=== PATIENT | male | born 1950 | race Caucasian/White ===

== ENCOUNTER 2021-06-03 20:08 | Emergency (ER) | payer MEDICARE, BC ==
[~2021-06-03] VITALS: Ht 175.3 cm; Wt 107.7 kg
--- NOTE | 2021-06-03 20:56 | RAD ---
PQRS Compliance Statement: One or more of the following individualized dose reduction techniques were utilized for this examinat ion: 1. Automated exposure control 2. Adjustment of the mA and/or kV according to patient size 3. Use of iterative reconstruction technique CT head without contrast 06/03/2021 8:40 PM INDICATION: Fall, hit head. Headache COMPARISON: None available TECHNIQUE: Multiple axial CT images of the head were obtained from skull base through the vertex with out intravenous contrast. FINDINGS: Head: Ventricles, sulci and basal cisterns are prominent compatible with mild generalized cerebral volume l oss. Low-attenuation in the periventricular white matter is suggestive of chronic small vessel ischem ic changes. There is no hydrocephalus. Valerio-white matter differentiation is normal. There is no acute intracranial hemorrhage. There is no mass, mass effect or midline shift. Mild cerebellar volume loss . Less, posterior fossa is normal in appearance. Visualized portions of the orbits are normal. Paranasal sinuses are well aerated. Mastoid air cells a re well aerated. Scalp and calvaria are normal. IMPRESSION: No acute intracranial hemorrhage. Mild generalized cerebral and cerebellar volume loss. Low-attenuation in the periventricular white ma tter is suggestive of chronic small vessel ischemic changes. Electronically signed by: Manda Gaona MD (06/03/2021 8:54 PM) [facility]
--- NOTE | 2021-06-03 21:07 | PHYS DOC ---
Past History Additional Past Medical Histor: Neuropathy, COPD, atrial fibrillation, CHF, stroke, coronary disease Past Surgical History: Cancer Surgery, Other Additional Past Surgical Histo: cardiac stents, thyroid surgery Alcohol Use: None General Adult EDM: Chief Complaint: Fall, complaining of left elbow, hip pain HPI: HPI: 71-year-old male has a history of COPD, CHF, atrial fibrillation on Coumadin who also has history of chronic gait imbalance, multiple falls and neuropathy. His says that he went out to smoke a cigarette, unfortunate the patient is an active smoker, she said that he had apparently lost his footing and fell backwards, complaining of pain in the left elbow/forearm, hip/back region in the back of his head, no reported loss of consciousness, she said he was in his usual state of health prior to this, no reported recent illness, fever, chills. The patient is unvaccinated to COVID-19. No reported slurred speech or facial droop, patient denies any focal numbness weakness/feeling face, arms or legs. Denies any loss of bowel or bladder control. Review of Systems: Review of Systems: General: no fevers , no chills, no general weakness Eyes: no blurred vision, no diplopia Skin: no rashes Neck: no swelling, no neck stiffness, no neck pain Heme: no bleeding, no lymph node enlargement Ear/Nose/Throat: No sore throat, no runny nose, no hearing loss, no difficulty swallowing Cardiovascular: no Chest pain, no palpitations Respiratory: No dyspnea, no cough, no hemoptysis Gastrointestinal: No abdominal pain, no nausea, no vomiting, no diarrhea, no blood in stool Genitourinary: no dysuria, no hematuria Musculoskeletal: no back pain, no leg pain, no arm pain, no arthralgia positive for left elbow pain, left hip pain headaches, no dizziness, no focal numbness/tingling, no focal weakness Psych: no depression, no anxiety, no SI/HI *All review of systems are negative other than what is noted above Allergies: Allergies: Allergies Coded Allergies Type Severity Reaction Last Updated Verified No Known Drug Allergies 06/03/21 No Physical Exam: PE: Gen-well appearing, no acute distress Head: Normocephalic/Atraumatic ENT: atraumatic, PERRLA, EOMI, oropharynx clear Neck: supple, full ROM/strength, no JVD, no nuchal rigidity, there is no midline cervical spinal tenderness Lungs: no distress, speaks in full sentences, scant end expiratory wheezing CV: irregularly irregular rate and rhythm, no murmus/rubs/gallops, peripheral pulses equal in all extremities Abdomen: soft/nontender, no guarding/rebound tenderness, no rigidity, non distended, normoactive bowel sounds Musculoskeletal: full ROM/strength in all extremities, swelling/contusion to the left elbow and forearm, swelling 1+ edema up to mid calves bilaterally Skin: There is a skin tear in the left elbow, left olecranon, left forearm, no lacerations however Lymph: no gross JAMES Neuro: alert and oriented x 4, CN 2-12 grossly intact, Motor strength is 5/5 in all extremities, no focal sensory deficits, no focal ataxia, Psych: normal mood/affect Current Patient Data: Vital Signs: Vital Signs Date Time Temp Pulse Resp B/P (MAP) Pulse Ox O2 Delivery O2 Flow Rate FiO2 06/03/21 20:23 98.2 66 18 116/60 94 Room Air EKG: EKG: [] Radiology/Procedures: Radiology/Procedures: [] Heart Score: C/O Chest Pain: No Risk Factors: Risk Factors: DM, Current or recent (<one month) smoker, HTN, HLP, family history of CAD, obesity. Risk Scores: Score 0 - 3: 2.5% MACE over next 6 weeks - Discharge Home Score 4 - 6: 20.3% MACE over next 6 weeks - Admit for Clinical Observation Score 7 - 10: 72.7% MACE over next 6 weeks - Early Invasive Strategies Course & Med Decision Making: Course & Med Decision Making Pertinent Labs and Imaging studies reviewed. (See chart for details) [] 71-year-old male with multiple medical problems presents to the emergency department for a fall of unknown etiology, does have chronic gait instability however he is on blood thinners, given his multiple medical problems I will get a work-up and includes a head CT, x-rays of the hip, elbow, medical work-up that includes labs, urinalysis, cardiac biomarkers, my suspicion for an acute stroke, ACS, infectious process, PE is lower, will get arterial blood gas given his history of COPD and active smoking, will cleanse the wounds on his left arm, tetanus is up-to-date, nothing suturable, will then reevaluate assess the situation, I did advise to him and his that he likely needs to get admitted for the multiple falls although the patient was adamant about not being admitted I will reassess and revisit the situation after we have some data available Reevaluation at 10:30 PM: The x-ray shows a pubic ramus fracture, discussed this case with Dr. Ron the orthopedic surgeon who said that this is a nonoperative fracture but the patient is unable to ambulate I spoke with the on- call hospitalist Dr. Addi Bernabe, agreed to admit the patient over at [facility] so I will transfer the patient Dragon Disclaimer: Leighann Disclaimer: This electronic medical record was generated, in whole or in part, using a voice recognition dictation system. Departure Departure: Impression: Primary Impression: Fracture of pubic ramus Additional Impressions: Fall from ground level Closed head injury Qualified Codes: S09.90XA - Unspecified injury of head, initial encounter Skin tear Disposition: ADMITTED INPATIENT Condition: STABLE Referrals: PCP,UNKNOWN (PCP) SIOBHAN KATZ MD Jun 03, 2021 21:07
[2021-06-03 21:35] LABS: BASO # 0.1 x10^3/uL (0.0-0.2); BASO % 1 % (0-3); EOS # 0.1 x10^3/uL (0.0-0.7); EOS % 1 % (0-3); HEMOGLOBIN 13.8 g/dL (13.0-17.5); LYMPH # 1.2 x10^3/uL (1.0-4.8); LYMPH % 12 % (24-48); MEAN CORPUSCULAR HEMOGLOBIN 32 pg (25-35); MEAN CORPUSCULAR HGB CONC 34 g/dL (31-37); MEAN CORPUSCULAR VOLUME 96 fL (79-100); MONO # 0.7 x10^3/uL (0.0-1.1); MONO % 6 % (0-9); NEUT # 8.6 x10^3uL (1.8-7.7); NEUT % 80 % (31-73); PLATELET COUNT 239 x10^3/uL (140-400); RED BLOOD COUNT 4.28 x10^6/uL (4.30-5.70); RED CELL DISTRIBUTION WIDTH 14.8 % (11.5-14.5); WHITE BLOOD COUNT 10.7 x10^3/uL (4.0-11.0)
[2021-06-03 21:43] LABS: CALCIUM 8.6 mg/dL (8.5-10.1); CREATININE 1.1 mg/dL (0.7-1.3); GFR 65.8; POTASSIUM 4.2 mmol/L (3.5-5.1)
--- NOTE | 2021-06-03 21:52 | RAD ---
XR FOREARM_LEFT 2 VIEWS History: Reason: Fall, left forearm pain with abrassion and skin tears / Spl. Instructions: / Histor y: Technique: 2 views left forearm Comparison: None. Findings: Normal alignment. No fracture. Vascular calcifications. First carpometacarpal and triscaphe DJD. No r adiopaque foreign body. No subcutaneous gas. Impression: 1. No acute osseous abnormality. Electronically signed by: Abdi Mcdermott DO (06/03/2021 9:50 PM) [facility]
--- NOTE | 2021-06-03 21:54 | RAD ---
XR HIP (WITH OR WITHOUT PELVIS) 1 VIEW History: Reason: fall, hip pain / Spl. Instructions: / History: Technique: AP view the pelvis and 2 additional views of bilateral hips. Comparison: None. Findings: Acute comminuted left superior pubic ramus fracture involving the pubic body. Acute left inferior pub ic ramus fracture. No dislocation. Vascular calcifications. Lower lumbar spondylosis. Impression: 1. Acute left superior and inferior pubic rami fractures. Electronically signed by: Abdi Mcdermott DO (06/03/2021 9:52 PM) JOSAFAT
[2021-06-03 21:56] LABS: ALBUMIN 3.1 g/dL (3.4-5.0); ALBUMIN/GLOBULIN RATIO 1.1 (1.0-1.7); TOTAL BILIRUBIN 0.2 mg/dL (0.2-1.0)
--- NOTE | 2021-06-03 21:56 | RAD ---
XR CHEST 1V History: Reason: Fall, chest pain / Spl. Instructions: / History: Comparison: None. Findings: Mild bibasilar linear atelectasis. No consolidation or pleural effusion. Normal heart size. No pneumo thorax. Impression: 1. No acute cardiopulmonary process. Electronically signed by: Abdi Mcdermott DO (06/03/2021 9:53 PM) [facility]
[2021-06-03 22:37] LABS: BGAS PH 7.39 (7.35-7.46)
[2021-06-03 22:40] VITALS: BP 117/69
[2021-06-03] MEDS ORDERED: MORPHINE SULFATE 2 MG/ML DISP.SYRIN. IV ONE (23:30)
== END 2021-06-03 23:16 | disposition admitted as inpatient to this hospital (09) ==
LOC: ER 20:08
DX: S32.592A Other specified fracture of left pubis, initial encounter for closed fracture (principal); S09.90XA Unspecified injury of head, initial encounter; S51.012A Laceration without foreign body of left elbow, initial encounter; S51.812A Laceration without foreign body of left forearm, initial encounter; I48.91 Unspecified atrial fibrillation; J44.9 Chronic obstructive pulmonary disease, unspecified; I50.9 Heart failure, unspecified; F17.210 Nicotine dependence, cigarettes, uncomplicated; Z86.73 Personal history of transient ischemic attack (TIA), and cerebral infarction without residual deficits; W18.39XA Other fall on same level, initial encounter; Y93.89 Activity, other specified; Y92.89 Other specified places as the place of occurrence of the external cause; Y99.8 Other external cause status
CPT/HCPCS: 36415; 36600; 70450; 71045; 73090; 73521; 80053; 82803; 83880; 84484; 85025; 96374; 99285; J2270

== ENCOUNTER 2021-08-05 11:55 | Inpatient (IN) | payer MEDICARE, BC ==
[~2021-08-05] VITALS: Ht 177.8 cm; Wt 89.9 kg
[2021-08-05] MEDS ORDERED: IV NORMAL SALINE 1,000ML 1,000 ML IV ONE ×2 (12:15→13:15)
--- NOTE | 2021-08-05 12:40 | EKG ---
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
[2021-08-05 12:44] LABS: ANION GAP 6 (6-14); BLOOD UREA NITROGEN 15 mg/dL (8-26); BUN/CREATININE RATIO 21 (6-20); CALCIUM 8.6 mg/dL (8.5-10.1); CARBON DIOXIDE 31 mmol/L (21-32); CHLORIDE 105 mmol/L (98-107); CREATININE 0.7 mg/dL (0.7-1.3); GFR 110.9; GLUCOSE 170 mg/dL (70-99); SODIUM 142 mmol/L (136-145)
[2021-08-05 12:48] LABS: POTASSIUM 4.4 mmol/L (3.5-5.1)
[2021-08-05 12:52] LABS: BASO # 0.1 x10^3/uL (0.0-0.2); BASO % 1 % (0-3); EOS # 0.1 x10^3/uL (0.0-0.7); EOS % 1 % (0-3); HEMATOCRIT 39.2 % (39.0-53.0); HEMOGLOBIN 12.5 g/dL (13.0-17.5); LYMPH # 1.1 x10^3/uL (1.0-4.8); LYMPH % 9 % (24-48); MEAN CORPUSCULAR HEMOGLOBIN 31 pg (25-35); MEAN CORPUSCULAR HGB CONC 32 g/dL (31-37); MEAN CORPUSCULAR VOLUME 96 fL (79-100); MONO # 0.7 x10^3/uL (0.0-1.1); MONO % 6 % (0-9); NEUT # 10.8 x10^3uL (1.8-7.7); NEUT % 85 % (31-73); PLATELET COUNT 233 x10^3/uL (140-400); RED BLOOD COUNT 4.09 x10^6/uL (4.30-5.70); RED CELL DISTRIBUTION WIDTH 16.8 % (11.5-14.5); WHITE BLOOD COUNT 12.8 x10^3/uL (4.0-11.0)
[2021-08-05 13:01] LABS: ALBUMIN 2.4 g/dL (3.4-5.0); ALBUMIN/GLOBULIN RATIO 0.7 (1.0-1.7); ALK PHOS 91 U/L (46-116); ALT (SGPT) 11 U/L (16-63); AST (SGOT) 20 U/L (15-37); MAGNESIUM 1.9 mg/dL (1.8-2.4); TOTAL BILIRUBIN 0.4 mg/dL (0.2-1.0); TOTAL PROTEIN 5.9 g/dL (6.4-8.2)
--- NOTE | 2021-08-05 13:07 | RAD ---
EXAM: Chest, single view. HISTORY: Weakness. COMPARISON: 06/03/2021. FINDINGS: A frontal view of the chest is obtained. There are chronic appearing interstitial changes. There is no consolidation, pleural effusion or pneumothorax. There is stable enlargement of the cardi ac silhouette. There is a faint nodular opacity overlying the right lateral mid thorax which is likel y artifactual given the absence of a correlate on the recent comparison exam. IMPRESSION: Chronic interstitial changes and mild cardiomegaly. Electronically signed by: Mariza Apple MD (08/05/2021 1:05 PM) [id number]
[2021-08-05] MEDS ORDERED: IV NORMAL SALINE 50ML 50 ML ONE (13:12)
[2021-08-05] MEDS ORDERED: cefTRIAXone SODIUM 1 GM VIAL ONE (13:13)
--- NOTE | 2021-08-05 13:17 | PHYS DOC ---
Past History Past Medical History: A-Fib, Anxiety, CAD, CHF, COPD, CVA, Dementia, Depression, Diabetes, High Cholesterol, Hypothyroid Additional Past Medical Histor: Neuropathy Past Medical History Bilateral cataracts, tremor, posttraumatic stress disorder, generalized weakness, anorexia Limited secondary to dementia Past Surgical History: Other Additional Past Surgical Histo: cardiac stents, thyroid surgery Past Surgical History Limited secondary to dementia Smoking: Non-smoker Alcohol Use: None Drug Use: None Social History Limited secondary to dementia General Adult EDM: Chief Complaint: HYPOTENSION HPI: HPI: 71-year-old male [facility] with report of fall out of his wheelchair just prior to arrival. Patient was subsequently found to have a low blood pressure. Patient reports he is unsure if he passed out. Patient does not think he hit his head. Denies neck pain. Patient is a poor historian with past medical history of dementia. Denies chest pain. Denies other discomfort. History of present illness limited secondary to dementia. Review of Systems: Review of Systems: Constitutional: Denies fever or chills HENT: Denies epistaxis Respiratory: Denies shortness of breath Cardiovascular: Denies chest pain GI: Denies abdominal pain, nausea, or vomiting Musculoskeletal: Denies neck pain Integument: Denies laceration Neurologic: Denies headache Review of systems limited secondary to dementia Current Medications: Current Meds: Current Medications Medications (Trade) Dose Ordered Sig/Valdemar Start Time Stop Time Status Last Admin Dose Admin Ceftriaxone Sodium 1 gm/ Sodium Chloride 50 ml @ 100 mls/hr 1X ONCE 08/05/21 13:15 08/05/21 13:44 Ceftriaxone Sodium (Rocephin) 1 gm STK-MED ONCE 08/05/21 13:13 08/05/21 13:13 DC Sodium Chloride 50 ml @ As Directed STK-MED ONCE 08/05/21 13:12 08/05/21 13:13 DC Allergies: Allergies: Allergies Coded Allergies Type Severity Reaction Last Updated Verified bupropion Allergy Unknown 08/05/21 Yes codeine Allergy Unknown 08/05/21 Yes escitalopram Allergy Unknown 08/05/21 Yes guaifenesin Allergy Unknown 08/05/21 Yes omeprazole Allergy Unknown 08/05/21 Yes Physical Exam: PE: Constitutional: Elderly, well nourished, no acute distress, non-toxic appearance HENT: Normocephalic, atraumatic Eyes: PERRL, EOMI, conjunctiva normal, no discharge Neck: No midline tenderness, supple Lungs & Thorax: No respiratory distress, equal chest rise and fall Abdomen: Soft, no tenderness Skin: Warm, dry, no erythema, no rash Extremities: No tenderness, ROM intact, no edema Neurologic: Alert and oriented X 2, normal motor function, normal sensory function, no focal deficits noted Psychologic: Affect normal, judgment abnormal Current Patient Data: Labs: Laboratory Tests Test 08/05/21 12:18 White Blood Count 12.8 x10^3/uL (4.0-11.0) H Red Blood Count 4.09 x10^6/uL (4.30-5.70) L Hemoglobin 12.5 g/dL (13.0-17.5) L Hematocrit 39.2 % (39.0-53.0) Mean Corpuscular Volume 96 fL (79-100) Mean Corpuscular Hemoglobin 31 pg (25-35) Mean Corpuscular Hemoglobin Concent 32 g/dL (31-37) Red Cell Distribution Width 16.8 % (11.5-14.5) H Platelet Count 233 x10^3/uL (140-400) Neutrophils (%) (Auto) 85 % (31-73) H Lymphocytes (%) (Auto) 9 % (24-48) L Monocytes (%) (Auto) 6 % (0-9) Eosinophils (%) (Auto) 1 % (0-3) Basophils (%) (Auto) 1 % (0-3) Neutrophils # (Auto) 10.8 x10^3uL (1.8-7.7) H Lymphocytes # (Auto) 1.1 x10^3/uL (1.0-4.8) Monocytes # (Auto) 0.7 x10^3/uL (0.0-1.1) Eosinophils # (Auto) 0.1 x10^3/uL (0.0-0.7) Basophils # (Auto) 0.1 x10^3/uL (0.0-0.2) Sodium Level 142 mmol/L (136-145) Potassium Level 4.4 mmol/L (3.5-5.1) Chloride Level 105 mmol/L (98-107) Carbon Dioxide Level 31 mmol/L (21-32) Anion Gap 6 (6-14) Blood Urea Nitrogen 15 mg/dL (8-26) Creatinine 0.7 mg/dL (0.7-1.3) Estimated GFR (Cockcroft-Gault) 110.9 BUN/Creatinine Ratio 21 (6-20) H Glucose Level 170 mg/dL (70-99) H Lactic Acid Level 2.3 mmol/L (0.4-2.0) H Calcium Level 8.6 mg/dL (8.5-10.1) Magnesium Level 1.9 mg/dL (1.8-2.4) Total Bilirubin 0.4 mg/dL (0.2-1.0) Aspartate Amino Transferase (AST) 20 U/L (15-37) Alanine Aminotransferase (ALT) 11 U/L (16-63) L Alkaline Phosphatase 91 U/L (46-116) Creatine Kinase 30 U/L (39-308) L Creatine Kinase MB (Mass) < 0.5 ng/mL (0.0-3.6) Creatine Kinase MB Relative Index % (0-4) Troponin I Quantitative < 0.017 ng/mL (0-0.055) Total Protein 5.9 g/dL (6.4-8.2) L Albumin 2.4 g/dL (3.4-5.0) L Albumin/Globulin Ratio 0.7 (1.0-1.7) L Vital Signs: Vital Signs Date Time Temp Pulse Resp B/P (MAP) Pulse Ox O2 Delivery O2 Flow Rate FiO2 08/05/21 12:23 97.2 70 18 98/51 (67) 98 EKG: EKG: @1226 NSR at 75bpm, NO ST elevation, QRS 110ms, QT/QTc 428/481ms Radiology/Procedures: Radiology/Procedures: PROCEDURE: CHEST AP ONLY EXAM: Chest, single view. HISTORY: Weakness. COMPARISON: 06/03/2021. FINDINGS: A frontal view of the chest is obtained. There are chronic appearing interstitial changes. There is no consolidation, pleural effusion or pneumothorax. There is stable enlargement of the cardiac silhouette. There is a faint nodular opacity overlying the right lateral mid thorax which is likely artifactual given the absence of a correlate on the recent comparison exam. IMPRESSION: Chronic interstitial changes and mild cardiomegaly. Electronically signed by: Mariza Apple MD (08/05/2021 1:05 PM) [id number] PROCEDURE: CT HEAD AND CERVICAL SPINE WO Examination: CT head and cervical spine without contrast HISTORY: History of fall, pain CT HEAD INDICATION: Reason: pain s/p fall / Spl. Instructions: / History: COMPARISON: 06/03/2021. Exposure: One or more of the following individualized dose reduction techniques were utilized for this examination: 1. Automated exposure control 2. Adjustment of the mA and/or kV according to patient size 3. Use of iterative reconstruction technique TECHNIQUE: 5 mm contiguous axial images were obtained from the skull base to the vertex in both bone and soft tissue algorithm. FINDINGS: No abnormal attenuation within the brain parenchyma. No evidence of acute intracranial hemorrhage. No extra-axial fluid collections. No mass effect or midline shift. Ventricular size is appropriate. Basal cisterns are patent. No fractures identified.Valerio-white differentiation is preserved.Globes and orbits are within normal limits. Paranasal sinuses and mastoid air cells are clear. CT CERVICAL SPINE INDICATION: Reason: pain s/p fall / Spl. Instructions: / History: COMPARISON: None Available. Technique: 2.5 mm contiguous axial images were obtained from the skull base through the cervicothoracic junction in both bone and soft tissue algorithm. Additional sagittal and coronal reconstructions were also performed. FINDINGS: Vertebral body height and alignment are maintained. Cervical lordosis is preserved. The lateral masses of C1 are aligned upon C2. No fractures identified. The bony canal is patent throughout. Mild intervertebral disc height loss identified in cervical spine likely degenerative changes. The paraspinous soft tissues are unremarkable. Visualized intracranial contents are unremarkable. Lung apices are clear. IMPRESSION: 1. No acute intracranial findings. 2. No acute fracture cervical spine. 3. Mild degenerative changes cervical spine. Electronically signed by: Nathan Washington MD (08/05/2021 1:15 PM) [id number] Heart Score: C/O Chest Pain: N/A Course & Med Decision Making: Course & Med Decision Making Pertinent Labs and Imaging studies reviewed. (See chart for details) [facility] with report of possible syncopal episode causing him to fall from his wheelchair. Patient subsequently noted to have low blood pressure. Concern for SIRS/sepsis upon arrival. Patient does have an indwelling Higuera catheter. History of recent UTI. IV fluid hydration given. Empiric antibiotic initiated. Labs obtained and posted to chart. UA without significant findings of acute infection. Lactic acid elevated. CT head/cervical spine without acute process. Chest x-ray stable. Rapid Covid negative. Patient requiring admission for further evaluation and treatment. Discussed with Dr. Araujo (hospitalist) who is in agreement with admission. Discussed findings and plan with patient, who acknowledges understanding and agreement. Dragon Disclaimer: Dragon Disclaimer: This electronic medical record was generated, in whole or in part, using a voice recognition dictation system. Departure Departure: Impression: Primary Impression: Hypotension Qualified Codes: I95.9 - Hypotension, unspecified Additional Impressions: Lactic acidosis Syncope Qualified Codes: R55 - Syncope and collapse Disposition: ADMITTED INPATIENT Admitting Physician: Anthony Araujo Condition: GUARDED Referrals: HORACE GOVEA APRN (PCP) Critical Care Time Critical care time was 30 minutes which includes time at bedside, spent in discussion of patient's care with specialists and/or family members, with interpretation of laboratory and/or radiological studies and is exclusive of procedures. KARLA TOMLINSON DO Aug 05, 2021 13:17
[2021-08-05 13:23] LABS: BACTERIA,URINE 0 /HPF (0-FEW); BILIRUBIN,URINE NEG (NEG); CLARITY,URINE TURBID; COLOR,URINE YELLOW; GLUCOSE,URINE NEG (NEG); NITRITE,URINE NEG (NEG); SQUAMOUS EPITHELIAL CELL,UR OCC /LPF; UROBILINOGEN,URINE 0.2 mg/dL (0.2 mg/dL)
[2021-08-05] MEDS ORDERED: DEXTROSE 50% 25 GM / 50ML DISP.SYRIN. IV PRN (15:30)
[2021-08-05 16:15] VITALS: BP 129/68
[2021-08-05] MEDS ORDERED: METO-239 PO (16:16)
[2021-08-05] MEDS ORDERED: BUDE10.2 IH (16:16)
[2021-08-05] MEDS ORDERED: LOSA100T14 PO (16:17)
[2021-08-05] MEDS ORDERED: LANO250L TP (16:19)
[2021-08-05] MEDS ORDERED: LEVO200T5 PO (16:20)
[2021-08-05] MEDS ORDERED: CALC-660 PO (16:21)
[2021-08-05] MEDS ORDERED: SERT100T PO (16:23)
[2021-08-05] MEDS ORDERED: DIVA-53 PO ×2 (16:24→16:36)
[2021-08-05] MEDS ORDERED: CHOL10004 PO (16:26)
[2021-08-05] MEDS ORDERED: CYAN100016 SL (16:27)
[2021-08-05] MEDS ORDERED: ASPI-630 PO (16:29)
[2021-08-05] MEDS ORDERED: FOLI20CA PO (16:29)
[2021-08-05] MEDS ORDERED: TAMS0.4C97 PO (16:30)
--- NOTE | 2021-08-05 16:30 | HP ---
ADMIT DATE: 08/05/2021 ATTENDING PHYSICIAN: Dr. Araujo. CHIEF COMPLAINT: Fall and weakness. HISTORY OF PRESENT ILLNESS: The patient is a 71-year-old gentleman with multiple medical issues. He had been at [facility] following a hospitalization both at the [facility] and the [facility] with a pelvic fracture. The pelvic fracture was in June of this year, 2 months ago. He was admitted by Dr. Bernabe and sent to [facility]. The patient has a longstanding medical history. Workup in the ED showed evidence of a UTI. He was also hypotensive with marginal blood pressures. His BP meds were held. IV hydration was initiated. He is admitted to the hospital for further treatment and evaluation. His is in the room and much of the history obtained from her. PAST MEDICAL HISTORY: Significant for dementia. He also had multiple strokes, with resultant left-sided hemiparesis. He has coronary artery disease, congestive heart failure, paroxysmal atrial fibrillation, chronic anticoagulation, dementia, type 2 diabetes, hyperlipidemia and hypothyroidism. He also has peripheral neuropathy related to diabetes. Other issues, he has a tremor, posttraumatic stress disorder, generalized weakness, anorexia and bilateral cataract surgery. PAST SURGICAL HISTORY: Includes adenoidectomy, uvulopalatoplasty, appendectomy, stent deployment and tonsillectomy as well as thyroid cancer. ALLERGIES: HE HAS MULTIPLE ALLERGIES INCLUDING BUSPAR, CODEINE, LEXAPRO, GUAIFENESIN AND OMEPRAZOLE, EXACT REACTION IS UNCLEAR. CURRENT MEDICATIONS: From the senior living include metoprolol, budesonide, losartan, Synthroid, Zoloft, Depakote, cholecalciferol, vitamin B12, folate, aspirin, Flomax, famotidine, finasteride, Aricept, primidone, Remeron, apixaban and melatonin. SOCIAL HISTORY: He was a smoker up until his recent admission. He denies any alcohol use. FAMILY HISTORY: Noncontributory. REVIEW OF SYSTEMS: Significant for generalized weakness. He has been in and out of the hospital and at the senior living for the last 2 months. He had a pelvic fracture in June of this year, resulting in a superior and inferior pubic rami fracture, which was treated conservatively. He has some linear atelectasis on the x-ray. He does have a COPD due to continued tobacco use. He is demented. He has good days and bad days. The has been the director internal audit. Her expectations may be a bit unrealistic. They have been to [facility], [facility] and he got diverted here, so continuity of care is an issue. Dr. Bernabe knows him briefly from an admission in 06/2021. PHYSICAL EXAMINATION: GENERAL: When I saw him, this is an elderly gentleman who is bedridden. VITAL SIGNS: Initial vital signs showed a blood pressure 101/62, pulse is 75 and regular. He is afebrile. Oxygen saturation 96% on room air. HEENT: Head is without trauma. Pupils are reactive. Sclerae nonicteric. Oropharynx clear. Mucous membranes appear dry. NECK: Supple, no bruits identified. LUNGS: Shallow respirations. CARDIOVASCULAR: Regular heart tones. No gallops. ABDOMEN: Soft. No guarding or rebound tenderness. EXTREMITIES: Show no cyanosis or edema. NEUROLOGIC FINDINGS: Flat affect. He is a bit confused. Much of the history obtained from the . SKIN: Warm and dry. PERTINENT LABORATORY AND X-RAY STUDIES: Admission hemoglobin was 12.5 g/dL with a white count of 12,800. Electrolytes within normal range. His creatinine 0.7 mg percent. Cardiac enzymes negative for coronary ischemia. The obligatory CT of the head showed no acute strokes. No acute cervical spine changes, degenerative changes of the cervical spine identified. There is no mass effect. There is atrophy of the brain tissue. ASSESSMENT: 1. A 71-year-old gentleman with hypotension resulting in a fall. No obvious long bone fracture. 2. Old cerebrovascular accident. 3. Recently treated urinary tract infection. 4. Multi-infarct dementia. 5. Hypotension in the setting of hypertension. 6. Hypothyroidism due to thyroid cancer and resection. 7. Chronic obstructive pulmonary disease. 8. Generalized debilitation. 9. Profound weakness related to meds. PLAN: 1. Admit to the inpatient unit. 2. Gentle IV hydration. 3. Blood pressure meds and other meds have been held. 4. alliance manager to discuss with the her expectations. She wants him better to go home. I think he will need long-term senior living care. His prognosis is guarded. He remains a FULL CODE per advanced directive. ABEL/PAULA DR: ABEL/doug TID: [id number]
[2021-08-05] MEDS ORDERED: FAMO20TA5 PO (16:31)
[2021-08-05] MEDS ORDERED: FINA5TAB4 PO (16:32)
[2021-08-05] MEDS ORDERED: DONE10TA61 PO (16:33)
[2021-08-05] MEDS ORDERED: PRIM50TA24 PO (16:34)
[2021-08-05] MEDS ORDERED: MIRT7.5T8 PO (16:35)
[2021-08-05] MEDS ORDERED: APIX5TAB3 PO (16:38)
[2021-08-05] MEDS ORDERED: BUSP10TA PO (16:39)
[2021-08-05] MEDS ORDERED: MELA3TAB43 PO (16:40)
[2021-08-05] MEDS ORDERED: PRAV80TA2 PO (16:40)
[2021-08-05] MEDS ORDERED: ACET500T68 PO (16:43)
[2021-08-05 16:46] LABS: VAL ACID 48 mcg/mL (50-100)
[2021-08-05] MEDS ORDERED: LOSA25TA11 PO (16:49)
[2021-08-05] MEDS: INSULIN LISPRO 300 UNITS/3 ML VIAL. SQ SCH (17:00)
[2021-08-05] MEDS ORDERED: ACET325T21 PO (17:01)
[2021-08-05] MEDS ORDERED: folic acid PO (17:01)
--- NOTE | 2021-08-05 18:12 | NUR ---
NURSING NOTE PT WAS ADMITTED TO THE FLOOR AT 16:05, FROM THE ED, ADMISSION ORDER IN PLACE, ADMISSION QUESTIONS ASKED, PHOTOS OF WOUNDS TAKEN, MEDICATIONS RECONCILED, PT IN BED, REPORTS NO PAIN.
[2021-08-05] MEDS: IV NORMAL SALINE 1,000ML 1,000 ML IV SCH (18:42)
[2021-08-05] MEDS: MINERAL OIL/PETROLATUM TOPICAL CREAM 113GM JAR. TP SCH (21:00)
[2021-08-05] MEDS: DIVALPROEX ER 500 MG TAB.ER.24H PO SCH (21:26)
[2021-08-05] MEDS: APIXABAN 5 MG TABLET. PO SCH (21:26)
[2021-08-05 21:57] VITALS: BP 116/74
[2021-08-05 23:49] VITALS: BP 118/69
[2021-08-06] VITALS (8 sets, daily range): BP systolic 77–151; BP diastolic 41–78
[2021-08-06] MEDS: IV NORMAL SALINE 1,000ML 1,000 ML IV SCH ×3 (04:31→17:30)
[2021-08-06] MEDS: LEVOTHYROXINE 100 MCG TABLET PO SCH (06:11)
[2021-08-06] MEDS: INSULIN LISPRO 300 UNITS/3 ML VIAL. SQ SCH ×3 (08:00→17:00)
[2021-08-06] MEDS: MINERAL OIL/PETROLATUM TOPICAL CREAM 113GM JAR. TP SCH ×2 (08:09→19:43)
[2021-08-06] MEDS: SERTRALINE 100 MG TABLET. PO SCH (08:09)
[2021-08-06] MEDS: DIVALPROEX ER 500 MG TAB.ER.24H PO SCH ×2 (08:09→19:43)
[2021-08-06] MEDS: APIXABAN 5 MG TABLET. PO SCH ×2 (08:09→19:43)
[2021-08-06 09:25] LABS: BASO % 1 % (0-3); EOS # 0.1 x10^3/uL (0.0-0.7); EOS % 2 % (0-3); HEMATOCRIT 32.7 % (39.0-53.0); HEMOGLOBIN 10.7 g/dL (13.0-17.5); LYMPH # 1.4 x10^3/uL (1.0-4.8); LYMPH % 24 % (24-48); MEAN CORPUSCULAR HEMOGLOBIN 31 pg (25-35); MEAN CORPUSCULAR HGB CONC 33 g/dL (31-37); MEAN CORPUSCULAR VOLUME 95 fL (79-100); MONO # 0.4 x10^3/uL (0.0-1.1); MONO % 6 % (0-9); NEUT # 3.8 x10^3uL (1.8-7.7); NEUT % 67 % (31-73); PLATELET COUNT 224 x10^3/uL (140-400); RED BLOOD COUNT 3.45 x10^6/uL (4.30-5.70); RED CELL DISTRIBUTION WIDTH 16.2 % (11.5-14.5); WHITE BLOOD COUNT 5.6 x10^3/uL (4.0-11.0)
[2021-08-06 09:37] LABS: CALCIUM 8.1 mg/dL (8.5-10.1); CREATININE 0.6 mg/dL (0.7-1.3); GFR 132.4; POTASSIUM 3.6 mmol/L (3.5-5.1)
--- NOTE | 2021-08-06 09:52 | NUR ---
NURSING NOTE PER USP, PT IS ABLE TO BEAR WT WITH X1 ASSIST AND WALKER. FABIANO ALDRICH
--- NOTE | 2021-08-06 14:45 | NUR ---
NURSING NOTE PT WAS A&O X4 THIS AM. PT WAS IN BED UPON ASSESSMENT AND MEDICATION ADMINISTRATION. PT TAKES MEDS WHOLE. SPOKE WITH FACILITY, PT HAS CHRONIC NAVARRO FOR RETENTION IN PLACE. PT UP IN CHAIR THIS AFTERNOON WORKING WITH PT/OT. PT SPOKE WITH MAINTENANCE REPRESENTATIVE THIS AM ABOUT HIS MEAL PREFERENCE IN [place] TO FIND SOMETHING PT WILL EAT, HAS BEEN EATING PEANUT BUTTER AND JELLY SANDWICHES. PER HAS LOST >30 POUNDS SINCE JUNE. ELINOR MARIO.
[2021-08-06] MEDS ORDERED: IV NORMAL SALINE 1,000ML 1,000 ML IV ONE (16:15)
--- NOTE | 2021-08-06 16:16 | NUR ---
NURSING NOTE ORTHOSTATIC +. ORDER FOR 1L BOLUS. INFUSION STARTED. ELINOR MARIO.
--- NOTE | 2021-08-06 17:13 | NUR ---
NURSING NOTE NAVARRO CATHETER PER , PT HAD [facility]O PLACED AT [facility] IN JUNE. THEN HAD NAVARRO TAKEN OUT AND ATTEMPT TO DRAIN BLADDER, PT UNABLE TO EMPTY BLADDER. SO THEY REPLACED IT AGAIN, FOLLOW UP AT [facility], HAD PROSTATE SURGERY AT [facility] 2 YEARS AGO BUT NEVER HAD ANY ISSUES UNTIL RECENTLY. FABIANO ALDRICH
--- NOTE | 2021-08-07 01:21 | PN ---
DATE: 08/06/2021 SUBJECTIVE: The patient is a 71-year-old male patient who was a resident at [facility], who was admitted through the Emergency Room of [facility] with a report of fall as he fell from his wheelchair just prior to arrival. He was subsequently found to have a low blood pressure. He reported that he is unsure if he passed out. He does not think he has hit his head. Denied any other pain. He was evaluated in the Emergency Room as he was hypotensive. He was given about 3 liters of fluid and was started on IV antibiotic in the form of ceftriaxone as her urinalysis showed trace of leukocyte esterase and 5-10 wbc's, although there was no bacteria. His blood cultures are so far negative and when I saw him this afternoon, the patient himself denied any complaint, in particular, denied any chest pain, shortness of breath. Denied any dizziness or lightheadedness; however, he continued to be somewhat hypotensive and I did check his orthostatics and his blood pressure lying in the bed was 110 systolic, dropped down to 88 sitting down to 77 standing. Although the patient himself was asymptomatic, he was able to walk with a walker and was sitting in the chair. PHYSICAL EXAMINATION: GENERAL: When I examined him, he looked pale, but not jaundice or cyanosed, no lymphadenopathy, no thyromegaly, no jugular venous distention. No limb edema. VITAL SIGNS: His heart rate was 87, blood pressure was 89/67, temperature 97.5, respiratory rate was 18 and oxygen saturation was 95% on room air. HEAD, EYES, EARS, NOSE, AND THROAT: Normocephalic, atraumatic. NECK: Supple. HEART: Normal first and second heart sounds. No gallop, rub or murmur. CHEST: Shows central trachea, equal bilateral chest expansion, air entry, vesicular breath sounds. No crepitation or rhonchi. ABDOMEN: Distended, soft, nontender. NEUROLOGIC: He was awake, alert, responding appropriately. Cranial nerves intact. He moves extremities without difficulty. He has an indwelling Higuera catheter. His intake over the last 24 hours was incompletely recorded. LABORATORY DATA: His lab work this morning showed a white cell count is down to 5600, hemoglobin 10.7, hematocrit 32, MCV 95. His platelet count 224,000. His chemistry showed a serum sodium 144, potassium 3.6, chloride 111, bicarbonate 28, anion gap of 5, BUN 16, creatinine 0.6. Estimated GFR was 132 mL per minute. His glucose 118, calcium was 8.1. His ____ was 48 mcg per mL ASSESSMENT: In summary, this patient was admitted with a history of fall from his wheelchair and was found to be hypotensive. His initial lab work showed he has mild leukocytosis. The white cell count 12,800. He was treated with IV fluid and was started on IV antibiotic. The patient continued to have marked postural hypotension. His systolic blood pressure was 108 lying and down to 77 standing, although so far his blood cultures are negative. Urinalysis was really unremarkable and his chest x-ray showed chronic interstitial changes and mild cardiomegaly. PLAN: My plan is to continue to hold her antihypertensive medication. I would add another bolus of normal saline and if he continued to have postural hypotension, we will probably have to arrange for ASIF hose and abdominal binder for possible autonomic neuropathy given that he has longstanding type [address]: Kamran TID: [id number]
[2021-08-07] MEDS: LEVOTHYROXINE 100 MCG TABLET PO SCH (06:14)
[2021-08-07 06:19] VITALS: BP 147/65
[2021-08-07] MEDS: INSULIN LISPRO 300 UNITS/3 ML VIAL. SQ SCH ×2 (07:32→11:40)
[2021-08-07] MEDS: IV NORMAL SALINE 1,000ML 1,000 ML IV SCH (07:32)
[2021-08-07] MEDS: SERTRALINE 100 MG TABLET. PO SCH (08:22)
[2021-08-07] MEDS: APIXABAN 5 MG TABLET. PO SCH ×3 (08:22→09:00)
[2021-08-07] MEDS: DIVALPROEX ER 500 MG TAB.ER.24H PO SCH (08:23)
[2021-08-07] MEDS: MINERAL OIL/PETROLATUM TOPICAL CREAM 113GM JAR. TP SCH (08:23)
--- NOTE | 2021-08-07 08:34 | NUR ---
PT REFUSED ELIQUIS THIS AM. PT STATES HE HAS TAKEN WARFARIN FOR 18 YEARS. PT EDUCATED THAT ELIQUIS IS A BLOOD THINNER WELL, AND THAT PT HAS ALREADY TAKEN THE MEDICATION DURING THIS STAY THREE TIMES. PT STATES THIS IS BECAUSE HE DIDN'T KNOW THAT IS WHAT HE WAS GETTING AND THAT PT SPRINKLER FITTER RECOMMEND HE TAKE WARFARIN.
--- NOTE | 2021-08-07 09:42 | NUR ---
ORTHOSTATIC BP'S: LYIN/66 SITTIN/65 STANDIN/67
[2021-08-07 09:43] VITALS: BP_SYST 114; BP_SYST 123; BP_SYST 127; BP_DIAS 65; BP_DIAS 66; BP_DIAS 67
[2021-08-07 10:32] LABS: CALCIUM 8.2 mg/dL (8.5-10.1); CREATININE 0.6 mg/dL (0.7-1.3); GFR 132.4; POTASSIUM 3.8 mmol/L (3.5-5.1)
--- NOTE | 2021-08-07 13:04 | DISCH ---
DISCHARGE ORDERS DISCHARGE DATE: Aug 07, 2021 FINAL DIAGNOSIS Recurrent falls autonomic neuropathy type II Diabetes Mellitus CONDITION AT DISCHARGE: Stable Code Status: Full SNF STAY <30 DAYS: Yes POST DISCHARGE ORDERS: ACTIVITY ORDERS: Activity as tolerated DIET AFTER DISCHARGE: Cardiac DISCHARGE MEDICATIONS: Home Meds Reported Medications [folic acid] 1 mg CAPSULE No Conflict Check, 1 MG PO DAILY for supplement 08/05/21 Acetaminophen (ACETAMINOPHEN) 325 Mg Tablet, 2 TAB PO PRN DAILY PRN for pain or fever for 30 Days, #30 TAB 0 Refills 08/05/21 Losartan Potassium (LOSARTAN POTASSIUM ) 25 Mg Tablet, 25 MG PO DAILY for HYPERTENSION, TAB 08/05/21 Melatonin (MELATONIN) 3 Mg Tab.rapdis, 3 MG PO HS for ., TAB 08/05/21 Pravastatin Sodium (PRAVASTATIN SODIUM) 80 Mg Tablet, 80 MG PO HS for ., TAB 08/05/21 Buspirone Hcl (BUSPIRONE HCL) 10 Mg Tablet, 1 TAB PO TID for ., #60 TAB 1 Refill 08/05/21 Apixaban (ELIQUIS) 5 Mg Tablet, 5 MG PO BID for ., TAB 08/05/21 Divalproex Sodium (DIVALPROEX SODIUM) 500 Mg Tablet.dr, 1500 MG PO HS for ., TAB 08/05/21 Mirtazapine (MIRTAZAPINE) 7.5 Mg Tablet, 7.5 MG PO HS for ., TAB 08/05/21 Primidone (MYSOLINE) 50 Mg Tablet, 50 MG PO HS for ., TAB 08/05/21 Donepezil Hcl (ARICEPT) 10 Mg Tablet, 10 MG PO HS for . , TAB 08/05/21 Finasteride (FINASTERIDE) 5 Mg Tablet, 5 MG PO DAILY for ., TAB 08/05/21 Famotidine (FAMOTIDINE) 20 Mg Tablet, 20 MG PO DAILY for ., TAB 08/05/21 Tamsulosin Hcl (FLOMAX) 0.4 Mg Cap.er.24h, 0.4 MG PO DAILY for ., CAP.SR 08/05/21 Aspirin (ASPIRIN) 81 Mg Tab.chew, 81 MG PO DAILY for ., TAB 08/05/21 Cyanocobalamin (Vitamin B-12) (VITAMIN B-12) 1,000 Mcg Tab.subl, 1000 MCG SL DAILY for ., TAB 08/05/21 Cholecalciferol (Vitamin D3) (Vitamin D3 ) 25 Mcg Tablet, 25 MCG PO DAILY for SUPPLEMENT, TAB 1,000 UNITS = 25 MCG 08/05/21 Divalproex Sodium (DIVALPROEX SODIUM) 500 Mg Tablet.dr, 500 MG PO DAILY for ., TAB 08/05/21 Sertraline Hcl (ZOLOFT) 100 Mg Tablet, 100 MG PO DAILY for ANTI-DEPRESSANT, TAB 0 Refills 08/05/21 Calcium Carbonate/Vitamin D3 (Oyster Shell 500Mg-Vit D3 5Mcg) 1 Each Tablet, 1 TAB PO BID for . for 30 Days, #60 TAB 0 Refills 08/05/21 Levothyroxine Sodium (LEVOTHYROXINE SODIUM) 200 Mcg Tablet, 200 MCG PO DAILYAC for THYROID SUPPLEMENT, #30 TAB 0 Refills 08/05/21 Lanolin/Mineral Oil (EUCERIN ORIGINAL LOTION) 250 Ml Lotion, 250 ML TP BID for ., MISC 08/05/21 Budesonide/Formoterol Fumarate (SYMBICORT 160-4.5 MCG INHALER) 10.2 Gm Hfa.aer.ad, 2 PUFF IH BID for ., #1 INHALER 3 Refills 08/05/21 Metoprolol Succinate (METOPROLOL SUCCINATE ( XL )) 25 Mg Tab.er.24h, 25 MG PO DAILY for FOR HYPERTENSION, #30 TAB 0 Refills 08/05/21 HEIDY SEARS MD Aug 07, 2021 13:04
--- NOTE | 2021-08-07 13:43 | DS ---
DATE OF DISCHARGE: 08/07/2021 HOSPITAL COURSE: The patient is a 71-year-old male patient who was a resident at [facility], who apparently fell from his wheelchair and was found to be hypotensive. He was treated aggressively with IV fluid and he was also treated with IV antibiotic for possible UTI; however, his urine culture did not grow any organism. We checked his blood pressure today, lying, sitting and standing. There is no evidence of any significant drop in his systolic pressure and therefore, a decision was made to discharge him back to [facility] to continue the process of rehabilitation and perhaps long-term care. PHYSICAL EXAMINATION: GENERAL: When I saw him this afternoon, he was resting slightly propped up in bed, in no apparent respiratory distress. No pallor, jaundice, cyanosis or thyromegaly. No jugular venous distention. No lower limb edema. VITAL SIGNS: His heart rate was 84, blood pressure is 127/66, temperature was 98.2, respiratory rate was 18 and oxygen saturation was 94% on room air. HEAD, EYES, EARS, NOSE, AND THROAT: Normocephalic, atraumatic. NECK: Supple. HEART: Showed normal first and second heart sounds. No gallop, rub or murmur. CHEST: Clear to auscultation, no crepitation or rhonchi. ABDOMEN: Distended, soft, nontender. NEUROLOGIC: He was awake, alert, responding appropriately. Cranial nerves intact. EXTREMITIES: He moves extremities without difficulty. He does ambulate with a walker. He has an indwelling Higuera catheter. His intake and output are incompletely recorded. LABORATORY DATA: His lab work this morning showed a white cell count 5600, hemoglobin 10.7, hematocrit 33, MCV 95 and platelet count 224,000. His serum sodium was 144, potassium 3.8, chloride 110, bicarbonate 27, anion gap of 7, BUN 9, creatinine 0.6. Estimated GFR was 132. His blood sugar was 134, calcium was 8.2. DISCHARGE MEDICATIONS: He was discharged back to [facility] to continue on acetaminophen 650 mg every 4 hours, apixaban 5 mg twice a day, aspirin 81 mg once a day, Symbicort 2 puffs twice a day, buspirone 10 mg 3 times a day, calcium carbonate with vitamin D one tablet twice a day, cholecalciferol vitamin D3 25 mcg daily, cyanocobalamin 1000 mcg daily, divalproex sodium 500 mg daily, divalproex sodium 1500 mg at bedtime, Aricept 10 mg at bedtime, famotidine 20 mg daily, finasteride 5 mg daily, folic acid 1 mg daily, Eucerin cream apply topically twice a day, levothyroxine sodium 200 mcg daily, losartan potassium 25 mg daily, melatonin 3 mg at bedtime, metoprolol succinate 25 mg once a day, mirtazapine 7.5 mg at bedtime, pravastatin sodium 80 mg at bedtime, primidone for Mysoline 50 mg at bedtime, sertraline for Zoloft 100 mg daily, tamsulosin 0.4 mg daily. FINAL DISCHARGE DIAGNOSES: 1. Fall with marked postural hypotension, likely due to autonomic neuropathy. The patient was aggressively rehydrated and today's blood pressure sitting, standing and lying showed no evidence of any postural hypotension. We will discontinue his losartan and continue with all his other medication. 2. Other medical problems include dementia, coronary artery disease, congestive heart failure, paroxysmal atrial fibrillation, rate controlled, well anticoagulated, type 2 diabetes mellitus, hyperlipidemia, hypothyroidism, posttraumatic stress disorder. ULISES/MYRTLE DR: Kamran TID: [id number]
--- NOTE | 2021-08-07 14:36 | NUR ---
REPORT CALLED TO [facility]. PT STABLE. WOUND PICTURES TAKEN AND WOUNDS REDRESSED. LEFT ELBOW HAD SOME SKIN THAT WAS STUCK TO THE AQUACEL, WHICH CAUSED SOME BLEEDING. PT NAVARRO LEFT IN. HEART MONITOR REMOVED, WELL IV.
[2021-08-07 15:05] VITALS: BP 153/79
--- NOTE | 2021-08-07 15:50 | NUR ---
PT PICKED UP BY [facility]. PT TAKEN BACK TO [facility]. EMS GIVEN DISCHARGE PAPERWORK.
== END 2021-08-07 15:51 | DRG 73 ==
LOC: ER 11:55 → 1 SOUTH 15:21
PROVIDERS: ADMIT Hospitalist; ATTEND Hospitalist
DX: G90.9 Disorder of the autonomic nervous system, unspecified (principal); E43 Unspecified severe protein-calorie malnutrition; N39.0 Urinary tract infection, site not specified; G81.94 Hemiplegia, unspecified affecting left nondominant side; C73 Malignant neoplasm of thyroid gland; E03.9 Hypothyroidism, unspecified; E11.42 Type 2 diabetes mellitus with diabetic polyneuropathy; E78.00 Pure hypercholesterolemia, unspecified; E78.5 Hyperlipidemia, unspecified; F01.50 Vascular dementia, unspecified severity, without behavioral disturbance, psychotic disturbance, mood disturbance, and anxiety; F43.10 Post-traumatic stress disorder, unspecified; I11.0 Hypertensive heart disease with heart failure; I25.10 Atherosclerotic heart disease of native coronary artery without angina pectoris; I48.0 Paroxysmal atrial fibrillation; I50.9 Heart failure, unspecified; I69.311 Memory deficit following cerebral infarction; I95.1 Orthostatic hypotension; J44.9 Chronic obstructive pulmonary disease, unspecified; W05.0XXA Fall from non-moving wheelchair, initial encounter; Z79.01 Long term (current) use of anticoagulants; Z85.850 Personal history of malignant neoplasm of thyroid; Z87.891 Personal history of nicotine dependence; Z95.5 Presence of coronary angioplasty implant and graft; F41.9 Anxiety disorder, unspecified; W18.39XA Other fall on same level, initial encounter; Y93.89 Activity, other specified; Y92.89 Other specified places as the place of occurrence of the external cause; Y99.8 Other external cause status; Z20.822 Contact with and (suspected) exposure to COVID-19; Z68.28 Body mass index [BMI] 28.0-28.9, adult
CPT/HCPCS: 36415; 70450; 71045; 72125; 80048; 80053; 80164; 81001; 82553; 82947; 83605; 83735; 84484; 85025; 85610; 87040; 87086; 87426; 93005; 96365; 96366; J0696; J1815; U0003; 97110; 97530; 99291-25; J7030

== ENCOUNTER 2021-09-11 22:19 | Emergency (ER) | payer MEDICARE, BC ==
[~2021-09-11] VITALS: Ht 177.8 cm; Wt 89.9 kg
[~2021-09-11 22:19] MED LIST: ACET325T21 PO; ACET500T68 PO; APIX5TAB3 PO; ASPI-630 PO; BUDE10.2 IH; BUSP10TA PO; CALC-660 PO; CHOL10004 PO; CYAN100016 SL; DIVA-53 PO; DONE10TA61 PO; FAMO20TA5 PO; FINA5TAB4 PO; FOLI20CA PO; LANO250L TP; LEVO200T5 PO; LOSA100T14 PO; LOSA25TA11 PO; MELA3TAB43 PO; METO-239 PO; MIRT7.5T8 PO; PRAV80TA2 PO; PRIM50TA24 PO; SERT100T PO; TAMS0.4C97 PO; folic acid PO
--- NOTE | 2021-09-11 22:31 | PHYS DOC ---
Past History Past Medical History: A-Fib, Anxiety, CAD, CHF, COPD, CVA, Dementia, Depression, Diabetes, High Cholesterol, Hypothyroid Additional Past Medical Histor: Neuropathy Past Surgical History: Other Additional Past Surgical Histo: cardiac stents, thyroid surgery Smoking: Non-smoker Alcohol Use: None Drug Use: None Adult General HPI HPI Patient is a 71-year-old male presenting via EMS for hypoxia and a known Covid positive individual. Patient who currently resides at [facility] for recent hip fracture and tested positive for Covid 3 days prior to arrival. He has been at baseline health ever since until earlier this evening it was reported that his O2 saturations were less than 90% on typical 2 L oxygen via nasal cannula. He was in no acute distress but given ongoing hypoxic readings, EMS was called for transport to our facility. On arrival to [facility], patient was 85% on 2 L oxygen in no acute distress and hemodynamically stable. His oxygen was increased to 4 L via nasal cannula with improvement in O2 saturations greater than 90% and patient was transferred to our facility. On arrival, patient has no complaints. On chart review, it appears patient has significant comorbid history consistent of dementia, CAD, heart failure, paroxysmal A. fib on anticoagulation, type 2 diabetes, hyperlipidemia, hypothyroid and PTSD. Review of Systems Review of Systems Fourteen body systems of review of systems have been reviewed. See HPI for pertinent positives and negative responses, other veliz all other systems are negative, non-pertinent or non-contributory Allergies Allergies Allergies Coded Allergies Type Severity Reaction Last Updated Verified bupropion Allergy Unknown 08/05/21 Yes codeine Allergy Unknown 08/05/21 Yes escitalopram Allergy Unknown 08/05/21 Yes guaifenesin Allergy Unknown 08/05/21 Yes omeprazole Allergy Unknown 08/05/21 Yes Physical Exam Physical Exam Constitutional: Age-appropriate in no acute distress, nontoxic in appearance HENT: Normocephalic, atraumatic, bilateral external ears normal, oropharynx dry with poor dentition globally, no oral exudates, nose normal. Nasal cannula in place Eyes: PERRLA, EOMI, conjunctiva normal, no discharge. Neck: Normal range of motion, no tenderness, supple, no stridor. Cardiovascular: Heart rate regular, sinus rhythm, no murmurs rubs or gallops Lungs & Thorax: No obvious respiratory distress, no accessory muscle use or retractions noted, bibasilar crackles present Abdomen: Bowel sounds normal, soft, no tenderness, no masses, no pulsatile masses. Nonsurgical abdomen, no peritoneal signs Skin: Warm, dry, no erythema, no rash. Back: No tenderness, no CVA tenderness. Extremities: No tenderness, no cyanosis, no clubbing, ROM intact, no edema. Neurologic: Alert and oriented X 3, cranial nerves II through XII intact, normal motor & sensory function, no focal deficits noted. Psychologic: Flat affect, judgement normal, mood normal. Current Patient Data Vital Signs Vital Signs Date Time Temp Pulse Resp B/P (MAP) Pulse Ox O2 Delivery O2 Flow Rate FiO2 09/11/21 22:34 97.9 85 14 96/59 (71) 96 Nasal Cannula 3.0 Vital Signs Date Time Temp Pulse Resp B/P (MAP) Pulse Ox O2 Delivery O2 Flow Rate FiO2 09/11/21 22:34 97.9 85 14 96/59 (71) 96 Nasal Cannula 3.0 Lab Results Laboratory Tests Test 09/11/21 22:30 White Blood Count 3.4 x10^3/uL Red Blood Count 4.08 x10^6/uL Hemoglobin 12.3 g/dL Hematocrit 38.0 % Mean Corpuscular Volume 93 fL Mean Corpuscular Hemoglobin 30 pg Mean Corpuscular Hemoglobin Concent 33 g/dL Red Cell Distribution Width 16.2 % Platelet Count 139 x10^3/uL Neutrophils (%) (Auto) 70 % Lymphocytes (%) (Auto) 17 % Monocytes (%) (Auto) 12 % Eosinophils (%) (Auto) 0 % Basophils (%) (Auto) 1 % Neutrophils # (Auto) 2.4 x10^3uL Lymphocytes # (Auto) 0.6 x10^3/uL Monocytes # (Auto) 0.4 x10^3/uL Eosinophils # (Auto) 0.0 x10^3/uL Basophils # (Auto) 0.0 x10^3/uL Bedside Venous pH 7.43 Bedside Venous pCO2 48 mmHg Bedside Venous pO2 28 mmHg Venous Blood HCO3 32 mmol/L POC Venous O2 Saturation (Ye) 53 % Bedside FiO2 32 Sodium Level 137 mmol/L Potassium Level 4.0 mmol/L Chloride Level 101 mmol/L Carbon Dioxide Level 30 mmol/L Anion Gap 6 Blood Urea Nitrogen 18 mg/dL Creatinine 0.9 mg/dL Estimated GFR (Cockcroft-Gault) 82.9 BUN/Creatinine Ratio 20 Glucose Level 82 mg/dL Lactic Acid Level 1.1 mmol/L Calcium Level 8.5 mg/dL Total Bilirubin 0.2 mg/dL Aspartate Amino Transf (AST/SGOT) 11 U/L Alanine Aminotransferase (ALT/SGPT) 8 U/L Alkaline Phosphatase 67 U/L [id number]-Type Natriuretic Peptide 1187 pg/mL Total Protein 6.1 g/dL Albumin 2.2 g/dL Albumin/Globulin Ratio 0.6 Current Medications Medications (Trade) Dose Ordered Sig/Valdemar Route PRN Reason Start Time Stop Time Status Last Admin Dose Admin Sodium Chloride 500 ml @ 0 mls/hr 1X ONCE IV 09/11/21 22:45 09/11/21 22:46 DC 09/11/21 22:55 EKG EKG EKG ordered and interpreted by myself at 2300 hrs. is sinus rhythm Srinivasa 83 bpm, prolonged QTC at 471 otherwise unremarkable intervals, no axis deviation, no acute ischemic findings, no STEMI Radiology/Procedures Radiology/Procedures Exam: Chest one view INDICATION: Shortness of breath TECHNIQUE: Frontal view of the chest Comparisons: 08/05/2021 FINDINGS: The cardiomediastinal silhouette and pulmonary vessels are within normal limits. Hazy right basilar airspace disease. No pleural effusion. IMPRESSION: Hazy bilateral airspace disease may relate to pulmonary edema. Electronically signed by: Aristeo Fisher MD (09/11/2021 10:47 PM) [facility] Heart Score C/O Chest Pain: No HEART Score for Chest Pain: HEART Score for Chest Pain Response (Comments) Value History Slighlty/Non-Suspicious 0 ECG Normal 0 Age > 65 2 Risk Factors >3 Risk Factors or Hx CAD 2 Troponin < Normal Limit 0 Total 4 Risk Factors: Risk Factors: DM, Current or recent (<one month) smoker, HTN, HLP, family history of CAD, obesity. Risk Scores: Risk Factors: DM, Current or recent (<one month) smoker, HTN, HLP, family history of CAD, obesity. Course & Med Decision Making Course & Med Decision Making ABCs unremarkable. I disclosed entirety of ER findings and discussed most likely diagnosis of hypoxia in a patient who typically is on 2 L oxygen nasal cannula, etiology likely fluid overload versus recent COVID-19 diagnosis. Other diagnoses were discussed with patient such as ACS, PE, pneumonia and other potentially life-threatening diagnoses but all deemed less likely causes of patient's presentation. 250 mL IV normal saline administered but discontinued after chest x-ray findings concerning for fluid overload. Subsequent 40 mg IV Lasix administered. Patient typically on 2 L O2 at home, was titrated to 2.5 to 3 L while in ER to keep saturations greater than 90%. I discussed little indication for further diagnostic work-up and/or need for hospitalization especially in the setting of patient going back to [facility] where he has good access to the nursing staff and [place] [facility] physician who can manage his fluid status and supplemental oxygen further given that it is a medical facility not. Ultimately, plan of care discussed at length with need for close outpatient follow-up to review today's ER visit stressed. Strict return precautions were also discussed at length with good understanding verbalized by patient. Patient voiced understanding and agreement with the plan. Patient knows to come back for repeat evaluation if concerning signs or symptoms present prior to outpatient follow- up. Hemodynamically stable and well-appearing at time of disposition. Dragon Disclaimer Dragon Disclaimer This electronic medical record was generated, in whole or in part, using a voice recognition dictation system. Departure Departure: Impression: Primary Impression: Acute hypoxemic respiratory failure due to COVID-19 Additional Impression: Acute and chronic respiratory failure with hypoxia Disposition: 01 HOME / SELF CARE / HOMELESS ([facility]) Condition: STABLE Referrals: HORACE GOVEA APRN (PCP) Additional Instructions: As discussed prior to ER departure, your comprehensive ER work-up was nonconcerning for any emergent or surgical issues. You were recently diagnosed with COVID-19, this in conjunction with prior history of heart failure and COPD are likely the cause of your worsened hypoxia. You are being discharged back to your medical facility who are capable of caring for your state given that you are only requiring 1 L oxygen more than baseline to keep your O2 saturations greater than 90%. Your [place] [facility] should titrate your supplemental oxygen as needed to keep O2 saturation between 90 to 95%. Your [place] [facility] physician should be notified next scheduled business day of ER visit today and need for c lose outpatient follow-up for continued management. Any concerning signs or symptoms present prior to outpatient follow-up please do not hesitate to come back for repeat evaluation. Is a pleasure to take care of you and I wish you the best going forward Problem Qualifiers CARLO PIERCE DO Sep 11, 2021 22:31
--- NOTE | 2021-09-11 22:49 | RAD ---
Exam: Chest one view INDICATION: Shortness of breath TECHNIQUE: Frontal view of the chest Comparisons: 08/05/2021 FINDINGS: The cardiomediastinal silhouette and pulmonary vessels are within normal limits. Hazy right basilar airspace disease. No pleural effusion. IMPRESSION: Hazy bilateral airspace disease may relate to pulmonary edema. Electronically signed by: Aristeo Fisher MD (09/11/2021 10:47 PM) [facility]
[2021-09-11 22:50] LABS: BASO % 1 % (0-3); EOS % 0 % (0-3); HEMOGLOBIN 12.3 g/dL (13.0-17.5); LYMPH # 0.6 x10^3/uL (1.0-4.8); LYMPH % 17 % (24-48); MEAN CORPUSCULAR HEMOGLOBIN 30 pg (25-35); MEAN CORPUSCULAR HGB CONC 33 g/dL (31-37); MEAN CORPUSCULAR VOLUME 93 fL (79-100); MONO # 0.4 x10^3/uL (0.0-1.1); MONO % 12 % (0-9); NEUT # 2.4 x10^3uL (1.8-7.7); NEUT % 70 % (31-73); PLATELET COUNT 139 x10^3/uL (140-400); RED BLOOD COUNT 4.08 x10^6/uL (4.30-5.70); RED CELL DISTRIBUTION WIDTH 16.2 % (11.5-14.5); WHITE BLOOD COUNT 3.4 x10^3/uL (4.0-11.0)
[2021-09-11] MEDS: IV NORMAL SALINE 500ML 500 ML IV ONE (22:55)
[2021-09-11 22:56] LABS: CALCIUM 8.5 mg/dL (8.5-10.1); CREATININE 0.9 mg/dL (0.7-1.3); GFR 82.9
--- NOTE | 2021-09-11 23:02 | EKG ---
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
[2021-09-11 23:11] LABS: ALBUMIN 2.2 g/dL (3.4-5.0); ALBUMIN/GLOBULIN RATIO 0.6 (1.0-1.7); TOTAL BILIRUBIN 0.2 mg/dL (0.2-1.0); TOTAL PROTEIN 6.1 g/dL (6.4-8.2)
[2021-09-11] MEDS ORDERED: FUROSEMIDE 40 MG/4 ML VIAL IVP ONE (23:30)
== END 2021-09-11 23:58 | disposition home or self-care (01) ==
LOC: ER 22:19
DX: U07.1 COVID-19 (principal); J96.01 Acute respiratory failure with hypoxia; J96.21 Acute and chronic respiratory failure with hypoxia; I11.0 Hypertensive heart disease with heart failure; I50.9 Heart failure, unspecified; E78.5 Hyperlipidemia, unspecified; Z86.73 Personal history of transient ischemic attack (TIA), and cerebral infarction without residual deficits; Z88.5 Allergy status to narcotic agent
CPT/HCPCS: 36415; 71045; 80053; 82803; 83605; 83880; 84484; 85025; 87040; 93005; 96360; J7040; 99285-25